=== PATIENT | female | born 1965 | race Caucasian/White ===

== ENCOUNTER 2016-11-16 08:36 | Emergency (ER) | payer OTHER ==
--- NOTE | 2016-11-16 12:11 | ED CLINICAL REPORT ---
Clinical Report - Physicians/Mid Levels [facility] [address] [place] [address] 11/16/2016 8:39 Patient: YUDY MONTGOMERY Time Seen: 09:45. Arrived- By private vehicle. Historian- patient. HISTORY OF PRESENT ILLNESS Chief Complaint: Injury to the right elbow. The injury happened about 2 days ago. The patient has been repetitively working with the arm. Occurred at work. Patient is not experiencing pain. No other injury. ( she says that the other day she was moving multiple files from a filing cabinet and continued to perform repetitive flexion and extension as well as pronation and supination of her right forearm). REVIEW OF SYSTEMS The patient has had new onset of pain-related weakness of the right forearm (moderate). No swelling, tingling or numbness. All systems otherwise negative, except as recorded above. PAST HISTORY Primary physician ([place] The patient's dominant hand is the right. SOCIAL HISTORY Never smoker. Regular alcohol use. No drug use. FAMILY HISTORY No significant family medical history. ADDITIONAL NOTES The nursing notes have been reviewed. PHYSICAL EXAM Vital Signs: 11/16/2016 09:12 BP: 138/84. HR: 90. RR: 18. O2 saturation: 100%. Temp: 98.4 F. Pain level now: 0/10. Have been reviewed. Appearance: Alert. No acute distress. Head: Head atraumatic. Eyes: Pupils equal, round and reactive to light. ENT: Pharynx normal. Neck: Neck supple. CVS: Normal heart rate and rhythm. Heart sounds normal. Respiratory: No respiratory distress. Breath sounds normal. Abdomen: No visible injury. Soft and nontender. Bowel sounds normal. No organomegaly. No mass. Back: Normal inspection. ROM normal. Skin: Skin intact. Skin warm and dry. Normal skin color. Normal skin turgor. Extremities: Right elbow: moderate tenderness. Limited ROM (diminished supination). No deformity. Neuro, Vascular and Tendons: Vascular status intact. Sensation intact. Motor intact. Neuro: No motor deficit. No sensory deficit. PROGRESS AND PROCEDURES Course of Care: Patient is stable. Patient/family counseled. Old medical records ordered. Old records unavailable. Disposition: Discharged. Condition: stable. CLINICAL IMPRESSION Tendonitis in the right elbow. Right lateral epicondylitis. INSTRUCTIONS Apply ice for 20 minutes four times a day until better. Don't apply ice directly to skin and don't use while asleep. Limit use of your right hand until released. Do not work with right hand until released. (continue the use of your tennis elbow brace as discussed). Warnings: GENERAL WARNINGS: Return or contact your physician immediately if your condition worsens or changes unexpectedly, if not improving as expected, or if other problems arise. OTC Medications: Motrin (available over the counter): take according to label instructions. Understanding of the discharge instructions verbalized by patient. Follow-up with: Tamiko Epps P.A.-C, [facility], , [place] [id number] [place] [address], [id number] Follow up Saturday in three days. Call for the next available appointment. (Electronically signed by Roni Hernandez MD 11/17/2016 18:08)
--- NOTE | 2016-11-16 12:11 | ED CLINICAL REPORT ---
Clinical Report - Physicians/Mid Levels [facility] [address] [place] [address] 11/16/2016 8:39 Patient: YUDY MONTGOMERY Time Seen: 09:45. Arrived- By private vehicle. Historian- patient. HISTORY OF PRESENT ILLNESS Chief Complaint: Injury to the right elbow. The injury happened about 2 days ago. The patient has been repetitively working with the arm. Occurred at work. Patient is not experiencing pain. No other injury. ( she says that the other day she was moving multiple files from a filing cabinet and continued to perform repetitive flexion and extension as well as pronation and supination of her right forearm). REVIEW OF SYSTEMS The patient has had new onset of pain-related weakness of the right forearm (moderate). No swelling, tingling or numbness. All systems otherwise negative, except as recorded above. PAST HISTORY Primary physician ([place]). The patient's dominant hand is the right. SOCIAL HISTORY Never smoker. Regular alcohol use. No drug use. FAMILY HISTORY No significant family medical history. ADDITIONAL NOTES The nursing notes have been reviewed. PHYSICAL EXAM Vital Signs: 11/16/2016 09:12 BP: 138/84. HR: 90. RR: 18. O2 saturation: 100%. Temp: 98.4 F. Pain level now: 0/10. Have been reviewed. Appearance: Alert. No acute distress. Head: Head atraumatic. Eyes: Pupils equal, round and reactive to light. ENT: Pharynx normal. Neck: Neck supple. CVS: Normal heart rate and rhythm. Heart sounds normal. Respiratory: No respiratory distress. Breath sounds normal. Abdomen: No visible injury. Soft and nontender. Bowel sounds normal. No organomegaly. No mass. Back: Normal inspection. ROM normal. Skin: Skin intact. Skin warm and dry. Normal skin color. Normal skin turgor. Extremities: Right elbow: moderate tenderness. Limited ROM (diminished supination). No deformity. Neuro, Vascular and Tendons: Vascular status intact. Sensation intact. Motor intact. Neuro: No motor deficit. No sensory deficit. PROGRESS AND PROCEDURES Course of Care: Patient is stable. Patient/family counseled. Old medical records ordered. Old records unavailable. Disposition: Discharged. Condition: stable. CLINICAL IMPRESSION Tendonitis in the right elbow. Right lateral epicondylitis. INSTRUCTIONS Apply ice for 20 minutes four times a day until better. Don't apply ice directly to skin and don't use while asleep. Limit use of your right hand until released. Do not work with right hand until released. (continue the use of your tennis elbow brace as discussed). Warnings: GENERAL WARNINGS: Return or contact your physician immediately if your condition worsens or changes unexpectedly, if not improving as expected, or if other problems arise. OTC Medications: Motrin (available over the counter): take according to label instructions. Understanding of the discharge instructions verbalized by patient. Follow-up with: Tamiko Epps P.A.-C, [facility], , [place] [id number] [place] [address], [id number] Follow up Saturday in three days. Call for the next available appointment. (Electronically signed by Roni Hernandez MD 11/17/2016 18:08)
--- NOTE | 2016-11-16 12:11 | ED NURSING NOTES ---
Clinical Report - Nurses [facility] [address] [place] [address] 11/16/2016 8:39 Patient: YUDY MONTGOMERY TRIAGE Triage time 09:12. Acuity: LEVEL 4. Chief Complaint: INJURY TO RIGHT ELBOW. Alert. No acute distress. [place] COMA SCORE: [place] Coma Scale: 15- eyes open spontaneously (4); best verbal response- oriented x 4 (5); best motor response- obeys commands (6). --09:19 Gabrielle Busby R.N. 09:12 11/16/16. BP: 138/84. HR: 90. RR: 18. O2 saturation: 100% on room air. Temp: 98.4 F (oral). Pain level now: 0/10. Additional comments: pain to 6-7/10 with movement. --09:19 Gabrielle Busby R.N. Weight: 68 kg stated. Height/Length: 67 inches Per Patient. BMI: 23.5. --09:15 Gabrielle Busby R.N. Medications None. --09:13 Gabrielle Busby R.N. Medication/allergy information source: the patient. --09:19 Gabrielle Busby R.N. Allergies No Known Drug Allergy. --09:14 Gabrielle Busby R.N. History Arrived by private vehicle. Historian: patient. Unaccompanied. Primary physician ([place]). This occurred (about 2 days ago). Mechanism of injury: (repetitive movements). PAST MEDICAL HX: Last normal menstrual period- Oct 2016. SOCIAL HX: Smoker- current status unknown (no). Regular alcohol use. (every other day). No drug use. FALL RISK ASSESSMENT: Fall risk assessment completed. No fall risk identified. FUNCTIONAL ASSESSMENT: Functional assessment: no impairments noted. LEARNING NEEDS ASSESSMENT: The learning needs assessment revealed no barriers. --09:19 Gabrielle Busby R.N. PROBLEMS: no known problems. ADDITIONAL SURGERIES: . Lasik. --09:14 Gabrielle Busby R.N. Assessment GENERAL / NEURO / PSYCH: Alert. Oriented X 4. Appears in no acute distress. Patient appears calm and cooperative. RESPIRATORY: Respirations not labored. SKIN: Skin is warm and dry. --09:19 Gabrielle Busby R.N. Interventions ID band on patient. To treatment room. --09:19 Gabrielle Busby R.N. PHYSICAL ASSESSMENT 09:15. GENERAL / NEURO / PSYCH: Oriented X 4. Alert. Appears in no acute distress. SKIN: Skin is warm and dry. --11:44 Gabrielle Busby R.N. NURSING PROGRESS NOTES 09:15. Call light placed in reach. Side rails up x 1. Bed placed in lowest position. Brakes of bed on. --11:44 Gabrielle Busby R.N. 10:30. The patient is resting quietly. Overall patient status is the same- she states feels the same. --12:20 Gabrielle Busby R.N. 12:15. The patient is calm and resting quietly. Overall patient status is the same- she states feels the same. GENERAL / NEURO / PSYCH: Alert. Oriented X 4. RESPIRATORY: No respiratory distress. CVS: Capillary refill less than 2 seconds. SKIN: Skin is warm and dry. --12:20 Gabrielle Busby R.N. DISPOSITION / DISCHARGE Departure time: 1215. Condition at departure: stable. No learning barriers present. Discharge instructions provided and reviewed with the patient. Reviewed medication(s). Prescription(s) given to the patient. Patient verbalized understanding. Written instructions provided in Finnish. The patient was discharged home and unaccompanied at time of discharge. She left the Emergency Department ambulatory and via private vehicle. FALL RISK ASSESSMENT: Fall risk assessment completed. No fall risk identified. --12:26 Gabrielle Busby R.N. 12:25 11/16/16. BP: 130/80. HR: 87. RR: 16. O2 saturation: 9% on room air. --12:26 Gabrielle Busby R.N. Locked/Released at 11/16/2016 13:40 by Gabrielle Busby R.N.
--- NOTE | 2016-11-17 18:09 | ED MED RECONCILIATION SUMMARY ---
Patient: YUDY MONTGOMERY Medication Reconciliation Report [facility] VisitID: [id number] [address] [place] [address] 51y, F Registration Date/Time: 11/16/2016 Weight: 68.0 kg Height/Length: 67 in. BMI: 23.5 ALLERGIES: No Known Drug Allergy The patient's Home Medications are listed below: NONE. The source(s) of the original Home Medication information: patient The following Medications were given to the patient in the Emergency Department: None. The following Medications were prescribed to the patient: Motrin (available over the counter): take according to label instructions. -- Roni Hernanedz MD
--- NOTE | 2016-11-17 18:09 | ED MED RECONCILIATION SUMMARY ---
Patient: YUDY MONTGOMERY Medication Reconciliation Report [facility] VisitID: [id number] [address] [place] [address] 51y, F Registration Date/Time: 11/16/2016 Weight: 68.0 kg Height/Length: 67 in. BMI: 23.5 ALLERGIES: No Known Drug Allergy The patient's Home Medications are listed below: NONE. The source(s) of the original Home Medication information: patient The following Medications were given to the patient in the Emergency Department: None. The following Medications were prescribed to the patient: Motrin (available over the counter): take according to label instructions. -- Roni Hernandez MD
--- NOTE | 2016-11-17 18:09 | ED MAR SUMMARY ---
..... Medication Administration Record [facility] [address] [place], [place] [id number] Patient: YUDY MONTGOMERY Visit ID: [id number] 51y, F Weight: 68.0 kg Height/Length: 67 in BMI: 23.5 ALLERGIES: No Known Drug Allergy
--- NOTE | 2016-11-17 18:09 | ED MAR SUMMARY ---
..... Medication Administration Record [facility] [address] [place], [place] [id number] Patient: YUDY MONTGOMERY Visit ID: [id number] 51y, F Weight: 68.0 kg Height/Length: 67 in BMI: 23.5 ALLERGIES: No Known Drug Allergy
--- NOTE | 2016-11-17 18:09 | ED DISCHARGE INSTRUCTIONS ---
Patient: YUDY MONTGOMERY General Instructions [facility] VisitID: [id number] [address] [place] [address] 51y, F Registration Date/Time: 11/16/2016 Tendonitis in the right elbow. Right lateral epicondylitis. INSTRUCTIONS Apply ice for 20 minutes four times a day until better. Don't apply ice directly to skin and don't use while asleep. Limit use of your right hand until released. Do not work with right hand until released. (continue the use of your tennis elbow brace as discussed). Warnings: GENERAL WARNINGS: Return or contact your physician immediately if your condition worsens or changes unexpectedly, if not improving as expected, or if other problems arise. OTC Medications: Motrin (available over the counter): take according to label instructions. Understanding of the discharge instructions verbalized by patient. Follow-up with: Tamiko Epps P.A.-C, [facility], , [place] [address] Follow up Saturday in three days. Call for the next available appointment. ADDITIONAL INFORMATION Tendonitis A tendon is the thick fibrous cord that joins muscle to bone and causes joints to move. Tendonitis is inflammation of the tendon which may be due to overuse, injury or infection. This usually involves the shoulders, forearm, wrist, hands and foot. Symptoms include local pain, swelling and tenderness to the touch. Movement of the involved joint increases the pain. Tendonitis requires about 4 to 6 weeks to heal. It is treated by preventing motion of the tendon with a splint or brace and use of anti-inflammatory medicine. Home Care: Apply an ice pack (ice cubes in a plastic bag, wrapped in a towel) over the injured area for 20 minutes every 1-2 hours the first day for pain relief. Continue this 3-4 times a day until the pain and swelling goes away. Rest the inflamed joint and protect it from movement. You may use ibuprofen (Motrin, Advil) or naproxen (Aleve, Naprosyn) to treat pain and inflammation, unless another medicine was prescribed. If you can't take these medicines, acetaminophen (Tylenol) may help with the pain, but does not treat inflammation. [NOTE : If you have chronic liver or kidney disease or ever had a stomach ulcer or GI bleeding, talk with your doctor before using these medicines.] As your symptoms improve, begin gradual motion at the involved joint. Follow Up With Your Doctor If Not Improving After The First Five Days Of Treatment. Get Prompt Medical Attention If Any Of The Following Occur: Redness over the painful area Increasing pain or swelling at the joint Fever of 100.4F (38C) or higher, or as directed by your healthcare provider Tennis Elbow Muscles connect to bones by thick fibrous cords (tendons). When the muscles are overused by repeated motion, the tendons may become inflamed and painful. This condition is called tendonitis. Tennis elbow is a form of tendonitis that occurs when the forearm muscles are used repeatedly in a twisting motion. It is also called lateral epicondylitis. Pain from tennis elbow occurs primarily on the outside of the elbow. But the pain can spread into the forearm and wrist. The elbow may also be swollen and tender to the touch. The pain may increase with arm movement or simple activities. Bending your wrist back, shaking hands, or turning a doorknob may cause pain. The pain often gets worse after several weeks or months. Sometimes you may feel pain when your arm is still. Tennis players who use a backhand stroke with poor technique are more prone to tennis elbow. Of course, playing tennis is only one cause of tennis elbow. Many common activities, such as hammering, painting, and raking, can also cause tennis elbow. Besides tennis players, people at risk include supervisor vine fruit farming, gardeners, musicians, and dentists. Sometimes patients develop this condition without any obvious activity that would cause the injury. Treatment includes rest of the arm and anti-inflammatory medicines. Special splints help reduce symptoms. Symptoms should improve after 4-6 weeks of rest. Steroid injections may be used if there is no improvement with rest and splinting alone. After pain is relieved, activities must be modified so the symptoms do not return. Physical therapy, with stretching, range of motion and strengthening exercises may be prescribed. These treatments are successful in most (85% of cases). Patients with continued symptoms for six months may benefit from surgical treatment. Home Care: Rest your elbow as needed and protect it from movement that causes pain. You may be advised to use a forearm splint at night to reduce morning symptoms. Your doctor may recommend a special wrap or splint to compress the muscles of the forearm and reduce pain during daytime activities. As your symptoms improve, begin to increase movement at the elbow. Apply an ice pack (ice cubes in a plastic bag, wrapped in a towel) over the injured area for 20 minutes every 1-2 hours the first day. Continue with ice packs 3-4 times a day for the next two days, then as needed for the relief of pain and swelling. unless another pain medicine was prescribed. If you cannot take these medicines, you may use acetaminophen (Tylenol). [NOTE: If you have chronic kidney disease or ever had a stomach ulcer or GI bleeding, talk with your doctor before using these medicines.] After healing, avoid the motion that caused your pain or learn to move in a way that causes less stress on the tendon. Continued use of a forearm wrap may prevent recurrence. Follow Up with your doctor, or as advised by our staff, if your symptoms are not starting to improve after one week of treatment. Return Promptly or contact your doctor if any of the following occur: Redness over the painful area Increasing pain or swelling at the elbow Unexplained fever over 100.0F (37.8C)) Ibuprofen Oral tablet What is this medicine? IBUPROFEN (eye BYOO proe fen) is a non-steroidal anti-inflammatory drug (NSAID). It is used for dental pain, fever, headaches or migraines, osteoarthritis, rheumatoid arthritis, or painful monthly periods. It can also relieve minor aches and pains caused by a cold, flu, or sore throat. How should I use this medicine? Take this medicine by mouth with a glass of water. Follow the directions on the prescription label. Take this medicine with food if your stomach gets upset. Try to not lie down for at least 10 minutes after you take the medicine. Take your medicine at regular intervals. Do not take your medicine more often than directed. A special MedGuide will be given to you by the pharmacist with each prescription and refill. Be sure to read this information carefully each time. Talk to your pocket creaser regarding the use of this medicine in children. Special care may be needed. What side effects may I notice from receiving this medicine? Side effects that you should report to your doctor or health adult live in caregiver as soon as possible: allergic reactions like skin rash, itching or hives, swelling of the face, lips, or tongue black or bloody stools, blood in the urine or in vomit breathing problems changes in vision chest pain general ill feeling or flu-like symptoms nausea or vomiting redness, blistering, peeling or loosening of the skin, including inside the mouth slurred speech or weakness on one side of the body stomach pain unexplained weight gain or swelling unusually weak or tired yellowing of eyes or skin Side effects that usually do not require medical attention (report to your doctor or health adult live in caregiver if they continue or are bothersome): constipation or diarrhea dizziness gas or heartburn stomach upset What may interact with this medicine? Do not take this medicine with any of the following medications: cidofovir ketorolac methotrexate pemetrexed This medicine may also interact with the following medications: alcohol aspirin diuretics lithium other drugs for inflammation like prednisone warfarin What if I miss a dose? If you miss a dose, take it as soon as you can. If it is almost time for your next dose, take only that dose. Do not take double or extra doses. Where should I keep my medicine? Keep out of the reach of children. Store at room temperature between 15 and 30 degrees C (59 and 86 degrees F). Keep container tightly closed. Throw away any unused medicine after the expiration date. What should I tell my health care provider before I take this medicine? They need to know if you have any of these conditions: asthma cigarette smoker drink more than 3 alcohol containing drinks a day heart disease or circulation problems such as heart failure or leg edema (fluid retention) high blood pressure kidney disease liver disease stomach bleeding or ulcers an unusual or allergic reaction to ibuprofen, aspirin, other NSAIDS, other medicines, foods, dyes, or preservatives or trying to get breast-feeding What should I watch for while using this medicine? Tell your doctor or healthcare professional if your symptoms do not start to get better or if they get worse. This medicine does not prevent heart attack or stroke. In fact, this medicine may increase the chance of a heart attack or stroke. The chance may increase with longer use of this medicine and in people who have heart disease. If you take aspirin to prevent heart attack or stroke, talk with your doctor or health adult live in caregiver. Do not take other medicines that contain aspirin, ibuprofen, or naproxen with this medicine. Side effects such as stomach upset, nausea, or ulcers may be more likely to occur. Many medicines available without a prescription should not be taken with this medicine. This medicine can cause ulcers and bleeding in the stomach and intestines at any time during treatment. Ulcers and bleeding can happen without warning symptoms and can cause . To reduce your risk, do not smoke cigarettes or drink alcohol while you are taking this medicine. You may get drowsy or dizzy. Do not drive, use machinery, or do anything that needs mental alertness until you know how this medicine affects you. Do not stand or sit up quickly, especially if you are an older patient. This reduces the risk of dizzy or fainting spells. This medicine can cause you to bleed more easily. Try to avoid damage to your teeth and gums when you brush or floss your teeth. You have been given the following additional information: Tendonitis Tennis Elbow Ibuprofen Oral tablet Limit use of your right hand until released. Do not work with right hand until released. (Electronically signed by Roni Hernandez MD 11/17/2016 18:08)
== END 2016-11-16 12:15 | disposition home or self-care (01) ==
LOC: ED SRH 08:36
DX: M77.11 Lateral epicondylitis, right elbow (principal)